=== PATIENT | male | born 1970 | race Caucasian/White ===

== ENCOUNTER 2023-07-24 06:10 | Emergency (ER) | payer BC ==
[~2023-07-24] VITALS: Ht 172.7 cm; Wt 86.2 kg
[2023-07-24] MEDS ORDERED: TOPROL XL50 M1 (06:44)
[2023-07-24] MEDS ORDERED: JANUVIA25 MG PO (06:45)
[2023-07-24] MEDS ORDERED: PERCOCET 5-3251 EACH (06:46)
[2023-07-24] MEDS ORDERED: BACTRIM DS TAB1 EACH (06:46)
[2023-07-24 08:42] LABS: CALCIUM 9.4 mg/dL (8.5-10.1); CREATININE SERUM 1.13 mg/dL (0.70-1.30); GFR 68.41; POTASSIUM 4.6 mEq/L (3.5-5.1)
[2023-07-24 08:51] LABS: INR 1.1; PARTIAL THROMBOPLASTIN TIME 37.7 SECONDS (22.0-34.0); PROTHROMBIN TIME 11.5 SECONDS (9.0-11.5)
[2023-07-24 09:06] LABS: HEMATOCRIT 38.8 % (39.0-48.0); MEAN CELL VOLUME 82.1 fL (80.0-100.00); MEAN CORPUSCULAR HEMOGLOBIN 27.6 pg (27.00-32.0); MEAN CORPUSCULAR HGB CONC 33.6 g/dl (32.0-36.0); PLATELET COUNT 232 K/uL (150-450); RED BLOOD COUNT 4.72 M/uL (4.00-6.00); RED CELL DISTRIBUTION WIDTH 15.1 % (11.5-14.5)
== END 2023-07-24 12:34 | disposition home or self-care (01) ==
LOC: ER 06:10
DX: D66 Hereditary factor VIII deficiency (principal); Z88.6 Allergy status to analgesic agent